=== PATIENT | female | born 1950 ===

== ENCOUNTER 2025-03-08 07:00 | Day surgery (SDC) | payer OTHER ==
[2025-03-01 08:00] VITALS: BP 135/76
[~2025-03-08] VITALS: Ht 167.6 cm; Wt 85.7 kg
[~2025-03-08 07:00] MED LIST: CALCIO; COZAAR100 MG PO; DAFLONEX-XL 11300 MG; HYDRODIURIL12.5 MG PO; METFORMIN HCL500 M3 PO; SINGULAIR10 MG PO; VITAMIN D31 ML
[2025-03-08] MEDS ORDERED: POVIDONE-IODINE 118 ML BOTT TOP ONE (08:42)
[2025-03-08] MEDS ORDERED: IBUPROFEN600 MG PO (10:53)
== END 2025-03-08 13:20 | disposition home or self-care (01) ==
LOC: CIR.AMB 07:00
PROVIDERS: ATTEND Obstetrics & Gynecology Gynecology
DX: N95.0 Postmenopausal bleeding (principal); N84.0 Polyp of corpus uteri